=== PATIENT | female | born 1930 | race Caucasian/White ===

== ENCOUNTER → 2016-08-18 | Outpatient (CLI) | payer OTHER ==
--- NOTE | 2016-08-18 16:45 | MA ---
Screening Digital Mammogram With iCAD Analysis Clinical Indications: Routine screening. Technique: Standard cephalocaudal and mediolateral oblique projections were obtained. This examinatio n was processed by the iCAD computer aided detection system. Comparison: August 2014, June 2011, May 2010. Breast density: A; Fatty. Findings: CAD was reviewed. No masses, suspicious calcifications or other signs of malignancy are id entified. There has been no significant change in the appearance of either breast. Impression: Negative mammogram. BI-RADS 1. Recommendation: Routine mammographic screening in one year. [facility] will send a result letter to the patient. Negative mammography should not preclude additional workup of a clinically suspicious finding. The patient's information is entered into a reminder system with a target due date for her next mammo gram.
== END ==
LOC: FIMAGING 11:47
DX: Z12.31 Encounter for screening mammogram for malignant neoplasm of breast (principal)
CPT/HCPCS: G0202

== ENCOUNTER → 2018-05-25 | Outpatient (CLI) | payer OTHER | LOC: FIMAGING 10:53 | PROVIDERS: ATTEND Family Medicine | DX: Z12.31 Encounter for screening mammogram for malignant neoplasm of breast (principal) ==

== ENCOUNTER 2018-08-29 05:50 | Inpatient (IN) | payer OTHER ==
[2018-08-18 13:20] LABS: PLATELET COUNT 203 10^3/uL (150-400)
--- NOTE | 2018-08-28 17:21 | GHP ---
DATE OF ADMISSION: 08/29/2018 HISTORY: Tamra (goes by Angelique) is an an 88-year-old female who has severe right shoulder glenohumera l arthritis. It is qfoo-jn-gego, painful, limits her range of motion, impacts her activities of pallavi y living, and she has failed all nonoperative measures for management of her shoulder pain. An MRI s hows severe end-stage glenohumeral osteoarthritis with loss of joint space and articular cartilage lo ose body, degenerative lipping and flattening of the humeral head, the rotator cuff is intact. There is AC joint arthrosis. After review of her treatment options, she has elected to proceed with a rig ht total shoulder arthroplasty. PAST MEDICAL HISTORY: Remarkable for diabetes, as well as reflux, hypothyroid, glaucoma. PAST SURGICAL HISTORY: Include left and right total knee arthroplasty. She has also had a spinal fu thalia. ALLERGIES: She is NSAID intolerant. MEDICATIONS: Currently include; multiple types of eyedrops for her glaucoma. They include Combigan, Rhopressa, latanoprost, Vyvulta. She uses Ristasis 0.05% eyedrops, levothyroxine 137 mcg tablets, a s well as Tolterodine ER 2 mg capsules extended release. SOCIAL HISTORY: She does have a remote history of smoking. REVIEW OF SYSTEMS: Positive from the endocrine standpoint for her diabetes and hypothyroid. She als o has a history of glaucoma. And from the GI standpoint, reflux. She is NSAID intolerant. PHYSICAL EXAM: GENERAL: Angelique is a well-developed, well-nourished, elderly female in no apparent dis tress. HEAD AND NECK: Normocephalic, atraumatic. CHEST: Clear. CARDIOVASCULAR: Regular rate and rhythm. ABDOMEN: Soft. NEUROLOGICALLY: She is alert and oriented x3. EXTREMITIES: Examination of the right shoulder shows about 140 degrees of forward flexion. She has limited internal rotation, just barely reaching behind her back, as well as limitation of external rotation. Her shoulder is p ainful with these maneuvers and crepitant. She has mild tenderness of the AC joint. Her neurovascul ar exam appears intact. IMPRESSION: Right shoulder glenohumeral osteoarthritis. PLAN: Right total shoulder arthroplasty. Benefits and risks of surgery have been reviewed with Angelique , including the risk of infection, damage to blood vessel or nerve, failure or loosening of component s, shoulder dislocation, and potentially variable amounts of range of motion after surgery. The jeny dian nature of the rehab has been reviewed. She has signed her consent form and wishes to proceed. /[id number]/MODL
[2018-08-29] MEDS ORDERED: ROPIVACAINE 0.2% 80 MG, EPINEPHrine 0.2 MG in SYRINGE 0 ML IU ONE (06:00)
[2018-08-29] MEDS ORDERED: TRANEXAMIC ACID 1,000 MG in NS 100 ML IV ONE (06:00)
[2018-08-29] MEDS ORDERED: LR 1,000 ML IV SCH ×2 (06:21→10:30)
[2018-08-29] MEDS ORDERED: ceFAZolin 2 GM/DEXTROSE 100 ML IV ONE (06:21)
[2018-08-29] MEDS ORDERED: BACITRACIN 50,000 UNITS/10 ML SYR IRR ONE (06:24)
[2018-08-29] MEDS ORDERED: BUPIVACAINE/EPI 0.5% 30 ML SDV ONE (06:24)
[2018-08-29] MEDS ORDERED: POLYMYXIN B SULFATE 500,000 UNIT/10 ML SYR IRR ONE (06:25)
--- NOTE | 2018-08-29 06:56 | PDANEPAE ---
ANE History of Present Illness Right shoulder pain, here for Right total shoulder ANE Past Medical History - Cardiovascular History Hx Hypertension: No Hx Arrhythmias: No Hx Chest Pain: No Hx Coronary Artery / Peripheral Vascular Disease: No Hx CHF / Valvular Disease: No Hx Palpitations: No - Pulmonary History Hx COPD: No Hx Asthma/Reactive Airway Disease: No Hx Recent Upper Respiratory Infection: No Hx Oxygen in Use at Home: No Hx Sleep Apnea: No Sleep Apnea Screening Result - Last Documented: Negative - Neurologic History Hx Cerebrovascular Accident: No Hx Seizures: No Hx Dementia: No Neurologic History Comment: peripheral neuropathy to bilateral feet - Endocrine History Hx Diabetes: Yes Endocrine History Comment: pre-diabetic. hypothyroidism - Renal History Hx Renal Disorders: Yes Renal History Comment: stress/ urge incontinence - Liver History Hx Hepatic Disorders: No - Neurological & Psychiatric Hx Hx Neurological and Psychiatric Disorders: No - Cancer History Hx Cancer: No - Congenital Disorder History Hx Congenital Disorders: No - GI History Hx Gastrointestinal Disorders: Yes Gastrointestinal History Comment: GERD - Other Health History Other Health History: wears glasses. bilateral hearing aides - Chronic Pain History Chronic Pain: Yes (all joints) - Surgical History Prior Surgeries: bronch as child 1936. T&A 137. l4-5 lami 1965. bilateral knee scopes 1994. perineal repair of rectocele 2000. carpal tunnel surgery- right 1996. carpal tunnel surgery- left 1999. right TKA with [place] 2002. l4- 5 spinal fusion 2005. left cataract with lens implant 2009. 01/30/10 left shoulder scope with Lloyd. broken left radial repair 2009. cataract 2010. 01/28/11 left TKA with [place]. left stent to eye for glaucoma 11/2013 ANE Review of Systems Review of Systems: - Exercise capacity METS (RN): 3 METS ANE Patient History - Allergies Allergies/Adverse Reactions: celecoxib [From Celebrex] Allergy (Verified 07/29/18 11:39) Diarrhea esomeprazole [From Nexium] Allergy (Verified 07/29/18 11:39) Diarrhea ibuprofen [From Motrin] Allergy (Verified 07/29/18 11:39) Diarrhea - Home Medications Home Medications: Brimonidine/Timolol [Combigan (*)] 1 drop EACHEYE BID 07/29/18 [Last Taken Unknown] Carboxymethylcellulose 1% [Refresh Celluvisc (*)] 1 - 2 drops EACHEYE BID [Last Taken Unknown] Cholecalciferol Vit D3 [Vitamin D3 2000 units tab (OTC)] 2,000 units PO DAILY [Last Taken Unknown] Herbals/Supplements -Info Only 1 ea PO DAILY 07/29/18 [Last Taken Unknown] Latanoprostene Bunod [Vyzulta] 1 drop EACHEYE HS 07/29/18 [Last Taken Unknown] Levothyroxine [Synthroid 137 mcg (*)] 137 mcg PO DAILY06 07/29/18 [Last Taken Unknown] Naproxen 1,000 mg PO DAILY 07/29/18 [Last Taken Unknown] Polyethylene Glycol 3350 [Miralax 17 gm (*)] 17 gm PO HS 07/29/18 [Last Taken Unknown] Ranitidine HCl [Zantac] 150 mg PO HS 07/29/18 [Last Taken Unknown] Tolterodine Tartrate [Detrol LA 2MG (*)] 2 mg PO DAILY8 07/29/18 [Last Taken Unknown] - Smoking Hx Smoking Status: Former smoker - Family Anes Hx Family Hx Anesthesia Complications: none ANE Labs/Vital Signs - Labs Result Diagrams: 08/18/18 12:31 08/18/18 12:31 - Vital Signs Height: 166.37 cm Weight: 84.822 kg ANE Physical Exam - Airway Neck exam: FROM Mallampati Score: Class 2 Mouth exam: normal dental/mouth exam - Pulmonary Pulmonary: no respiratory distress, no rales or rhonchi - Cardiovascular Cardiovascular: regular rate and rhythym, no murmur, rub, or gallop - ASA Status ASA Status: II ANE Anesthesia Plan Anesthesia Plan: general endotracheal anesthesia Total IV Anesthesia: No
[2018-08-29] MEDS ORDERED: MIDAZOLAM 2 MG/2 ML VIAL ONE (06:57)
[2018-08-29] MEDS ORDERED: MIDAZOLAM 2 MG/2 ML VIAL IVP ONE (06:58)
[2018-08-29] MEDS ORDERED: LIDOCAINE 2% 100 MG/5 ML SYR ONE (07:05)
[2018-08-29] MEDS ORDERED: PROPOFOL 200 MG/20 ML VIAL ONE ×2 (07:05→08:37)
[2018-08-29] MEDS ORDERED: fentaNYL 100 MCG/2 ML INJ ONE ×2 (07:05→10:32)
[2018-08-29] MEDS ORDERED: ROPIVACAINE HCL 150 MG/30 ML INJ ONE (07:05)
[2018-08-29] MEDS ORDERED: RANITIDINE 50 MG/2 ML VIAL ONE (07:05)
--- NOTE | 2018-08-29 07:16 | PDHPUP ---
History & Physical Update H&P update statement: This history and physical update is based on an assessment of the patient which was completed after admission or registration (within 24 hours), but prior to the surgery/procedure. no change H&P update: no change in patient's condition since H&P completed (no change)
[2018-08-29] MEDS ORDERED: POVIDONE-IODINE 20 ML in SODIUM CL IRRIG SOLUTION 500 ML IRR ONE (08:30)
[2018-08-29] MEDS ORDERED: HYDROmorphONE/DILAUDID 2 MG/ML INJ IVP PRN (09:28)
[2018-08-29] MEDS ORDERED: PROMETHAZINE HCL 25 MG/ML INJ IVP PRN (09:28)
[2018-08-29] MEDS ORDERED: oxyCODONE IR 5 MG TAB PO PRN (09:28)
[2018-08-29] MEDS ORDERED: MEPERIDINE 25 MG/0.5 ML AMP IVP PRN (09:28)
[2018-08-29] MEDS ORDERED: NALOXONE HCL 0.4 MG/ML INJ IVP PRN (09:28)
[2018-08-29] MEDS ORDERED: ACETAMINOPHEN 500 MG TAB PO PRN (09:28)
[2018-08-29] MEDS ORDERED: LR 500 ML IV PRN (09:28)
[2018-08-29] MEDS ORDERED: fentaNYL 100 MCG/2 ML INJ IVP PRN (09:28)
[2018-08-29] MEDS ORDERED: DIAZEPAM 5 MG/ML 1 ML SYR IVP PRN (09:28)
--- NOTE | 2018-08-29 10:12 | POSTANESTH ---
Post Anesthetic Evaluation Cardiovascular Status: Normal, Stable, Tx Over/Under Hydration Level of Consciousness/Mental Status: Can Participate in Eval, Mildly Sleepy, Arousable Pain Control: Adequate, Prn Tx Ordered Nausea/Vomiting Control: Adequate, Prn Tx Ordered Complications Possibly Related to Anesthesia: None Noted (Right arm heavy, very little pain)
[2018-08-29] MEDS ORDERED: ONDANSETRON 4 MG/2 ML VIAL IVP PRN (10:15)
[2018-08-29] MEDS ORDERED: TEMAZEPAM 15 MG CAP PO PRN (10:15)
--- NOTE | 2018-08-29 11:10 | GOP ---
DATE OF OPERATION: SURGEON: Gaurav Bryan MD GAS APPLIANCE REPAIRER: DEXTER Davis, LSA. ANESTHESIOLOGIST: Abigail Carrasquillo DO PREOPERATIVE DIAGNOSIS: Right shoulder glenohumeral osteoarthritis. POSTOPERATIVE DIAGNOSIS: Right shoulder glenohumeral osteoarthritis. PROCEDURE PERFORMED: Right total shoulder arthroplasty. FINDINGS: SPECIMENS: Include excised bone. ESTIMATED BLOOD LOSS: About 30 mL. INDICATIONS: Angelique is an 88-year-old female who has end-stage amvy-aj-rtem, severe right shoulder gle nohumeral osteoarthritis. It is sops-xb-ssfl with lipping osteophytes, flattening of the head. She has limited motion and function of her shoulder and pain and crepitus of the puyi-fv-cemj articulatio n, has exhausted nonoperative care. Total shoulder arthroplasty is planned. DESCRIPTION OF PROCEDURE: The patient was taken to the operating room, and received a scalene block by Dr. Carrasquillo. She was placed under general anesthetic with laryngeal mask ventilation. She received preoperative antibiotics, 2 g IV Ancef, as well as tranexamic acid. She was placed in a semi-beach chair position with a Baron buyer tobacco head with her body moved to the right side so I could extend he r shoulder. The right shoulder and arm were prepped and draped free in the usual fashion. I pre-inj ected an incision line and used a deltopectoral approach to the shoulder. Dissection was carried chepe n to subcutaneous tissue. I mobilized the cephalic vein and moved it laterally with the deltoid and blunt finger dissection carried down to the deltopectoral fascia. There was a lot of inflammatory bu rsa. There was an area of superior capsule that generated a capsular cyst superiorly and anteriorly, and this was drained. I identified the surrounding anatomy and conjoined tendon, long head biceps i n its groove, and rotator cuff which had a lot of superior inflammatory tissue, which was a mixture o f granulation tissue and bursa. This was debrided. I opened the distal aspect of the bicipital groo ve above the pectoralis tendon and identified the long head biceps tendon. It was tenodesed into the groove using 2 fdogzg-po-eiajd sutures of #2 FiberWire. The tendon was divided above it and later r emoved from the joint. I opened the capsule full-thickness through the subscapularis tendon and join t capsule, carried this up into the rotator interval and tagged the tendon. I made this tendon a mob ile unit by debriding inflammatory capsule and making sure it was mobile against the anterior edge of the glenoid. I palpated the course of the axillary nerve, coursing inferior to the capsule, and rel eased the capsule down inferiorly. This enabled me to expose the humeral head. I made a neck cut us ing a neck cutting guide and made sure this included about 15 to 20 degrees of retroversion. I remov ed rimming osteophytes. I gained entrance to the humeral canal with an awl and I reamed up to 12 mm by the feel of the canal, as well as preoperative planning. I broached up to a size 12 and left the trial to protect the neck and head. The bone quality was good. By releasing inferior capsule and so me posterior capsule, I was able to place a posterior glenoid neck retractor posteriorly, as well as one anteriorly. This exposed the glenoid. I sized the glenoid at a 44. I prepared the glenoid by d rilling a central peg hole, reaming the surface smooth. Additional peg holes for cement and a trial component fit well. I used a Global Clanton peg glenoid Premieron crosslink polyethylene with the sp tral bony ingrowth peg, which fit nicely into the central hole for bone ingrowth. I cemented the 3 p eripheral pegs and this was a good fit and it was stable. I then returned my attention to the godwin s, right placed sutures of #2 Mersilene in the humeral neck for later repair of the subscapularis. T he size 12 Global Advantage Porocoat standard stem was press-fit into place. I did a series of trial reductions and sizing of the head. I chose a size 48 x 18 eccentric head which nicely covered the n jason area, and I fine tuned the humeral neck, removing some rimming osteophytes, so a nice smooth pyle sition occurred between the eccentric head and the neck area. The eccentric head was tamped into patricia ce over the Dela Cruz taper fit and the shoulder was reduced. I used antibiotic irrigation. I mattresse d the anterior humeral neck sutures through the subscapularis to repair the anterior cuff, and I adde d a couple jgtsqf-je-iqqbd #2 FiberWires superiorly in the interval to close that part of the rotator cuff. The humeral head had appropriate stability. It had about 30 degrees of external rotation, in ternal rotation to her body. It felt stable. Antibiotic irrigation was used including a Betadine ri nse. I checked for hemostasis. No drain was required. The wound was closed in layers using 2-0 and 3-0 Monocryl, and the skin was closed with a 3-0 running subcuticular suture of a Quill absorbable t ype. I glued the wound, placed Telfa and a Tegaderm. She was placed in a medium sling. There were no complications. DRAINS: None. COUNTS: All counts were correct and the patient was taken in stable condition to recovery. SUMMARY OF COMPONENTS: This is a Qloud Global Advantage total shoulder system. The stem is a Poroco at standard stem size 12. The glenoid is a Global Clanton Peg glenoid Premieron crosslink polyethylen e. The stainless steel head is Global Advantage Eccentric head size 48 x 18 with most of the eccentr ic enlargement of the head superior. My educational/development assistant was a medical necessity for this total shoulder arthroplasty. /[id number]/MODL
--- NOTE | 2018-08-29 12:07 | PDMN ---
Medical Necessity Medical necessity: Pt meets IP criteria as of 08/29/18 per and [facility]634, ( total shoulder arthroplasty); Medicare IP only procedure
[2018-08-29] MEDS: ceFAZolin 2 GM/DEXTROSE 100 ML IV SCH ×2 (15:57→23:45)
[2018-08-29] MEDS: CALCIUM CARBONATE 500 MG CHEWABLE TAB PO PRN (15:59)
[2018-08-29] MEDS: ACETAMINOPHEN 325 MG TAB PO PRN (19:02)
[2018-08-29] MEDS: BRIMONIDINE/TIMOLOL 5 ML OPHT.BTL EACHEYE SCH (20:25)
[2018-08-29] MEDS: DOCUSATE SODIUM 100 MG CAP PO SCH ×2 (20:31→20:34)
[2018-08-29] MEDS: FAMOTIDINE 20 MG TAB PO SCH (20:31)
[2018-08-29] MEDS: POLYETHYLENE GLYCOL 3350 17 GM PKT PO SCH (20:33)
[2018-08-29] MEDS: Latanoprostene Bunod [Vyzulta] 1 DROP EACHEYE SCH (20:44)
[2018-08-29] MEDS: CARBOXYMETHYLCELLULOSE 1% 0.4 ML DROPERETTE EACHEYE SCH (20:44)
[2018-08-29] MEDS ORDERED: NAPROXEN SODIUM 220 MG TAB PO SCH (21:00)
[2018-08-30] MEDS: ACETAMINOPHEN 325 MG TAB PO PRN ×2 (00:06→20:37)
[2018-08-30] MEDS: HYDROCODONE/APAP 5/325 TAB PO PRN ×2 (04:52→12:08)
[2018-08-30] MEDS: LEVOTHYROXINE 137 MCG TAB PO SCH (05:26)
[2018-08-30] MEDS: CHOLECALCIFEROL VIT D3 2,000 UNITS TAB/CAP PO SCH (07:53)
[2018-08-30] MEDS: DOCUSATE SODIUM 100 MG CAP PO SCH ×2 (07:53→20:36)
[2018-08-30] MEDS: BRIMONIDINE/TIMOLOL 5 ML OPHT.BTL EACHEYE SCH ×2 (07:54→20:38)
--- NOTE | 2018-08-30 08:50 | SOAPPROG ---
SOAP Progress Note Assessment/Plan: Assessment: 08/30/18 POD# 1 R TSA, pain controlled, xray fine Plan: 08/30/18 08:47 home today, estefania harris, out pt PT Objective: Vital Signs Temp Pulse Resp BP Pulse Ox 36.7 C 74 14 126/63 H 94 08/30/18 07:47 08/30/18 07:47 08/30/18 07:47 08/30/18 07:47 08/30/18 07:47 Laboratory Results 08/18/18 12:31 08/18/18 12:31 08/29/18 08/30/18 08/31/18 05:59 05:59 05:59 Intake Total 1460 Output Total 2120 Balance -660 ICD10 Worksheet Patient Problems: Problems Problem Status Onset Osteoarthritis of right shoulder Acute - ICD10 Problem Qualifiers (1) Osteoarthritis of right shoulder
[2018-08-30] MEDS ORDERED: Herbals/Supplements -Info Only PO SCH (09:00)
[2018-08-30] MEDS ORDERED: NAPROXEN PO SCH (09:00)
[2018-08-30] MEDS: TOLTERODINE TARTRATE 2 MG EXT REL CAP PO SCH (09:26)
[2018-08-30] MEDS: CARBOXYMETHYLCELLULOSE 1% 0.4 ML DROPERETTE EACHEYE SCH ×2 (09:27→20:37)
--- NOTE | 2018-08-30 13:31 | ASMTCMCOM ---
CM Note CM Note Notes: Pt had planned OA of shoulder. Pt resides alone, has limited friends/family to help and prior to surgery planned to d/c to [facility]. PT/OT rec SNF. Referral sent to [facility] and they can accept pt. CM to follow. D/c plan of care: [facility] Date Signed: 08/30/2018 01:30 PM Electronically Signed By:LB Kwong
[2018-08-30] MEDS: NAPROXEN SODIUM 220 MG TAB PO SCH ×2 (13:40→20:38)
[2018-08-30] MEDS: POLYETHYLENE GLYCOL 3350 17 GM PKT PO SCH (20:36)
[2018-08-30] MEDS: FAMOTIDINE 20 MG TAB PO SCH (20:36)
[2018-08-30] MEDS: Latanoprostene Bunod [Vyzulta] 1 DROP EACHEYE SCH (21:30)
[2018-08-31] MEDS: NAPROXEN SODIUM 220 MG TAB PO SCH ×3 (00:10→20:57)
[2018-08-31] MEDS: LEVOTHYROXINE 137 MCG TAB PO SCH (05:20)
[2018-08-31] MEDS: BRIMONIDINE/TIMOLOL 5 ML OPHT.BTL EACHEYE SCH ×2 (08:48→20:57)
[2018-08-31] MEDS: DOCUSATE SODIUM 100 MG CAP PO SCH ×2 (08:48→20:57)
[2018-08-31] MEDS: TOLTERODINE TARTRATE 2 MG EXT REL CAP PO SCH (08:48)
[2018-08-31] MEDS: CHOLECALCIFEROL VIT D3 2,000 UNITS TAB/CAP PO SCH (08:48)
[2018-08-31] MEDS: CARBOXYMETHYLCELLULOSE 1% 0.4 ML DROPERETTE EACHEYE SCH ×2 (09:07→20:57)
[2018-08-31] MEDS: ACETAMINOPHEN 325 MG TAB PO PRN (12:17)
[2018-08-31] MEDS ORDERED: BISACODYL 10 MG SUPP PR PRN (13:57)
[2018-08-31] MEDS ORDERED: MAGNESIUM HYDROXIDE 30 ML UDCUP PO PRN (13:57)
--- NOTE | 2018-08-31 13:57 | SOAPPROG ---
SOAP Progress Note Assessment/Plan: Assessment: PO s/p R TSA Awake, alert, afebrile. Pain under control. Working w/ PT/OT Waiting to transfer to SNF tomorrow. Plan: Cont PT/OT. D.c to SNF tomorrow. 08/31/18 13:54 Objective: Vital Signs Temp Pulse Resp BP Pulse Ox 36.4 C 76 16 139/72 H 97 08/31/18 07:33 08/31/18 07:33 08/31/18 07:33 08/31/18 07:33 08/31/18 07:33 Laboratory Results 08/18/18 12:31 08/18/18 12:31 08/30/18 08/31/18 09/01/18 05:59 05:59 05:59 Intake Total 1460 900 Output Total 6150 4100 Balance -977 -1969 ICD10 Worksheet Patient Problems: Problems Problem Status Onset Osteoarthritis of right shoulder Acute
[2018-08-31] MEDS: POLYETHYLENE GLYCOL 3350 17 GM PKT PO SCH ×2 (16:07→20:57)
[2018-08-31] MEDS: SENNOSIDES/DOCUSATE SODIUM TAB PO SCH (20:57)
[2018-08-31] MEDS: FAMOTIDINE 20 MG TAB PO SCH (20:57)
[2018-08-31] MEDS: Latanoprostene Bunod [Vyzulta] 1 DROP EACHEYE SCH (20:57)
[2018-09-01] MEDS: ACETAMINOPHEN 325 MG TAB PO PRN (01:27)
[2018-09-01] MEDS: LEVOTHYROXINE 137 MCG TAB PO SCH (05:44)
[2018-09-01 07:17] VITALS: BP 138/67
--- NOTE | 2018-09-01 08:28 | SOAPPROG ---
SOAP Progress Note Assessment/Plan: Assessment: 08/30/18 POD# 1 R TSA, pain controlled, xray fine 09/01/18 POD#3 R TSA, working with PT Plan: 08/30/18 08:47 home today, estefania harris, out pt PT 09/01/18 08:27 SNF today Objective: Vital Signs Temp Pulse Resp BP Pulse Ox 36.7 C 75 14 138/67 H 94 09/01/18 07:17 09/01/18 07:17 09/01/18 07:17 09/01/18 07:17 09/01/18 07:17 Laboratory Results 08/18/18 12:31 08/18/18 12:31 08/31/18 09/01/18 09/02/18 05:59 05:59 05:59 Intake Total 900 2550 Output Total 3250 1800 Balance -2350 750 ICD10 Worksheet Patient Problems: Problems Problem Status Onset Osteoarthritis of right shoulder Acute - ICD10 Problem Qualifiers (1) Osteoarthritis of right shoulder
--- NOTE | 2018-09-01 08:38 | PDIAF ---
- Diagnosis Diagnosis: right shoulder osteoarthritis, s/p right total shoulder Code Status: Full Code - Medication Management Discharge Medications: electronically signed and located in the Home Medication List. - Orders Services needed: Physical Therapy Diet Recommendation: no restrictions on diet Diet Texture: Regular Texture Diet Wound Care Instructions: leave tegaderm on Sutures/[place] Site: wound glued Activity/Weight Bearing Restrictions: may use right arm close to body, avoid external rotation beyond neutral for first 2 weeks, may advance forward flexion , full motion at elbow, sling is for comfort Additional Instructions: f/u Dr Bryan at 2 weeks post op - Follow Up Care Current Providers and Referrals: KEISHA OWEN [Primary Care Provider] - Gaurav Bryan MD [Medical Doctor] -
[2018-09-01] MEDS: NAPROXEN SODIUM 220 MG TAB PO SCH (08:47)
[2018-09-01] MEDS: TOLTERODINE TARTRATE 2 MG EXT REL CAP PO SCH (08:49)
[2018-09-01] MEDS: CALCIUM CARBONATE 500 MG CHEWABLE TAB PO PRN (08:49)
[2018-09-01] MEDS: CHOLECALCIFEROL VIT D3 2,000 UNITS TAB/CAP PO SCH (08:49)
[2018-09-01] MEDS: BRIMONIDINE/TIMOLOL 5 ML OPHT.BTL EACHEYE SCH (08:50)
[2018-09-01] MEDS: CARBOXYMETHYLCELLULOSE 1% 0.4 ML DROPERETTE EACHEYE SCH (08:51)
[2018-09-01] MEDS: SENNOSIDES/DOCUSATE SODIUM TAB PO SCH (08:52)
[2018-09-01] MEDS: DOCUSATE SODIUM 100 MG CAP PO SCH (08:52)
--- NOTE | 2018-09-01 11:05 | ASMTLACE ---
LACE Length of stay for Answers: 4-6 days current admission Acuity / Level of Answers: Yes Care: Did the patient have an inpatient admission? Comorbidities - select Answers: Diabetes (uncontrolled or all that apply controlled) Opioid dependence / Chronic pain Other Notes: Hypothyroid # of Emergency department Answers: 0 visits in the last 6 months Score: 13 Date Signed: 09/01/2018 11:05 AM Electronically Signed By:LB wKong
--- NOTE | 2018-09-01 11:07 | ASMTCMCOM ---
CM Note CM Note Notes: Pt medically stable for d/c to [facility], orders sent in [employer]. ROE Phan to call report. Sofy at scheduled transport for 1400. Date Signed: 09/01/2018 11:06 AM Electronically Signed By:LB Kwong
--- NOTE | 2018-09-01 14:08 | ASDISCHSUM ---
Discharge Information Plan Status:SNF Medically Cleared to Leave: Discharge Date:09/01/2018 02:03 PM CM D/C Disposition: ADT D/C Disposition:[facility] Facility Projected Discharge Date:09/01/2018 11:00 AM Transportation at D/C: Discharge Delay Reason: Follow-Up Date:09/01/2018 11:00 AM Discharge Slot: Final Diagnosis: Placement Information Referral Type:*Longterm/SNF Referral ID:[id number] Provider Name:[facility] Address 1:[address] [place] [address] Address 2: City:[place] Selection Factors: State:[place] Patient Contact Information Contact Name:KIMMIE Relationship:Daughter Address: City: [facility] Phone: State/Zip Code: Email: Financial Information Financial Class:Medicare Primary Plan Desc:MEDICARE INPATIENT Primary Plan Number:[id number] Secondary Plan Desc:NATALI BRYANT PPO [employer] Secondary Plan Number:[id number] Assessment Information LACE LACE Length of stay for Answers: 4-6 days current admission Acuity / Level of Answers: Yes Care: Did the patient have an inpatient admission? Comorbidities - select Answers: Diabetes (uncontrolled or all that apply controlled) Opioid dependence / Chronic pain Other Notes: Hypothyroid # of Emergency department Answers: 0 visits in the last 6 months Score: 13 Date Signed: 09/01/2018 11:05 AM Electronically Signed By:LB Kwong [facility] CM Progress Note CM Note CM Note Notes: Pt had planned OA of shoulder. Pt resides alone, has limited friends/family to help and prior to surgery planned to d/c to [facility]. PT/OT rec SNF. Referral sent to [facility] and they can accept pt. CM to follow. D/c plan of care: [facility] Date Signed: 08/30/2018 01:30 PM Electronically Signed By:LB Kwong [facility] CM Progress Note CM Note CM Note Notes: Pt medically stable for d/c to [facility], orders sent in [employer]. ROE Phan to call report. Sofy at scheduled [facility] transport for 1400. Date Signed: 09/01/2018 11:06 AM Electronically Signed By:LB Kwong Intervention Information Intervention Type:*IM-Signed Date of Service:09/01/2018 01:30 PM Patient Type:Inpatient Staff Member:Alexai Carney Hours: Discipline: Severity: Comment:
== END 2018-09-01 14:03 | DRG 483 ==
LOC: F3N 05:50
PROVIDERS: ADMIT Orthopaedic Surgery; ATTEND Orthopaedic Surgery
PROC: 0RRJ0JZ Replacement of Right Shoulder Joint with Synthetic Substitute, Open Approach (ICD-10-PCS; principal; 2018-08-29 07:15)
DX: M19.011 Primary osteoarthritis, right shoulder (principal); E11.9 Type 2 diabetes mellitus without complications; K21.9 Gastro-esophageal reflux disease without esophagitis; E03.9 Hypothyroidism, unspecified; H40.9 Unspecified glaucoma; Z96.651 Presence of right artificial knee joint; Z98.1 Arthrodesis status; N39.46 Mixed incontinence
CPT/HCPCS: 97116-GP; 97161-GP; 97165-GO; 97530-GP; 97535-GO; C1713; J0171; J0690; J2001; J2250; J2704; J2780; J2795; J3010